=== PATIENT | female | born 1985 | race African-American/Black ===

== ENCOUNTER 2019-09-07 15:13 | Emergency (ER) | payer OTHER ==
[2019-09-07] MEDS ORDERED: DIPHENHYDRAMINE HCL 50 MG/ML VIAL IV ONE (15:43)
[2019-09-07] MEDS ORDERED: KETOROLAC TROMETHAMINE INJ/PF 30 MG/1 ML SDV IV ONE (15:43)
--- NOTE | 2019-09-07 15:44 | ER Document Report ---
ED Medical Screen (RME) - General Chief Complaint: High Blood Pressure Stated Complaint: HEADACHE Time Seen by Provider: 09/07/19 15:39 Mode of Arrival: Ambulatory Information source: Patient Notes: Patient is a 33-year-old female presenting to the emergency department with concern for elevated blood pressure and headache. Patient reports he started having a headache last night. She states it is located in the back of her head. She states that she took Tylenol with no relief. She reports that she took her blood pressure and noted it to be elevated. She went to the urgent care today where they gave her a work note told her to come to the ER for further evaluation. She denies any blurred vision. She states the headache came on gradually. She has no focal neurological deficits. I have greeted and performed a rapid initial assessment of this patient. A comprehensive ED assessment and evaluation of the patient, analysis of test results and completion of the medical decision making process will be conducted by additional ED providers. I have specifically instructed the patient or family members with the patient to immediately return to any nursing staff should anything change in the patient's condition or with their chief complaint. - Related Data Allergies/Adverse Reactions: No Known Allergies Allergy (Verified 09/07/19 15:37) Home Medications: multivitamin Past Medical History - Social History Chew tobacco use (# tins/day): No Frequency of alcohol use: Social Drug Abuse: None Physical Exam - Vital signs Vitals: Temp Pulse Resp BP Pulse Ox 97.8 F 69 18 151/82 H 100 09/07/19 15:19 09/07/19 15:19 09/07/19 15:19 09/07/19 15:19 09/07/19 15:19 Course - Vital Signs Vital signs: Temp Pulse Resp BP Pulse Ox 97.8 F 69 18 151/82 H 100 09/07/19 15:37 09/07/19 15:19 09/07/19 15:19 09/07/19 15:19 09/07/19 15:19
--- NOTE | 2019-09-07 17:07 | ER Document Report ---
ED Blood Pressure Problem - General Chief Complaint: High Blood Pressure Stated Complaint: HEADACHE Time Seen by Provider: 09/07/19 15:39 Primary Care Provider: MARILYN GARCÍA MD [ACTIVE STAFF] - Follow up tomorrow (Call for an outpatient follow-up appointment.) Mode of Arrival: Ambulatory Information source: Patient Notes: 33-year-old female past medical history significant for menstrual migraines presents to the emergency room complaining of a posterior headache that started last night. States it was a squeezing type of pain. Was able to sleep without difficulty last night states she woke up with a headache again this morning. Took 500 mg of Tylenol went to the urgent care states her blood pressure was 162/109 and was referred to the emergency room for further evaluation and treatment. Patient denies any nausea, vomiting, no photophobia, denies worst headache of her life, denies sudden thunderclap, no chest pain, no shortness of breath, no difficulty breathing. No previous history of hypertension. TRAVEL OUTSIDE OF THE [place] IN LAST 30 DAYS: No - Related Data Allergies/Adverse Reactions: No Known Allergies Allergy (Verified 09/07/19 15:37) Home Medications: multivitamin Past Medical History - General Information source: Patient - Social History Smoking Status: Never Smoker Chew tobacco use (# tins/day): No Frequency of alcohol use: Social Drug Abuse: None Lives with: Family Family History: DM, Hypertension Patient has homicidal ideation: No Review of Systems - Review of Systems Constitutional: No symptoms reported EENT: No symptoms reported Cardiovascular: No symptoms reported Respiratory: No symptoms reported Musculoskeletal: No symptoms reported Skin: No symptoms reported Neurological/Psychological: Headaches -: Yes All other systems reviewed and negative Physical Exam - Vital signs Vitals: Temp Pulse Resp BP Pulse Ox 97.8 F 69 18 151/82 H 100 09/07/19 15:19 09/07/19 15:19 09/07/19 15:19 09/07/19 15:19 09/07/19 15:19 - General General appearance: Appears well, Alert In distress: Mild - HEENT Head: Normocephalic, Atraumatic. No: Tenderness Eyes: Normal Pupils: PERRL - Respiratory Respiratory status: No respiratory distress Chest status: Nontender Breath sounds: Normal Chest palpation: Normal - Cardiovascular Rhythm: Regular Heart sounds: Normal auscultation Murmur: No - Extremities General upper extremity: Normal inspection, Nontender, Normal color, Normal ROM, Normal temperature General lower extremity: Normal inspection, Nontender, Normal color, Normal ROM, Normal temperature, Normal weight bearing. No: Mohsen's sign - Neurological Neuro grossly intact: Yes Cognition: Normal Orientation: AAOx4 Hai Coma Scale Eye Opening: Spontaneous Hai Coma Scale Verbal: Oriented Hai Coma Scale Motor: Obeys Commands Thorndike Coma Scale Total: 15 Speech: Normal Motor strength normal: LUE, RUE, LLE, RLE Sensory: Normal - Skin Skin Temperature: Warm Skin Moisture: Dry Skin Color: Normal Course - Re-evaluation Re-evalutation: 09/07/19 17:16 Patient is currently resting comfortably states her headache is almost completely resolved. Vital signs are stable. EKG ordered if stable will discharge home. 09/07/19 17:37 Patient continues to rest comfortably, her blood pressure is stable. EKG without any acute changes. Patient was counseled to take Tylenol as needed for headaches. Outpatient follow-up with a primary care physician for her elevated blood pressure. She was given strict return to the emergency room guidelines. Return for any new or worsening symptoms. All questions were answered. Patient verbalized understanding and agrees with plan of care. - Vital Signs Vital signs: Temp Pulse Resp BP Pulse Ox 97.8 F 69 18 162/78 H 100 09/07/19 15:37 09/07/19 15:19 09/07/19 15:19 09/07/19 16:51 09/07/19 15:19 - EKG Interpretation by Nm EKG shows normal: Sinus rhythm Rate: Normal Additional EKG results interpreted by me: 09/07/19 17:33 EKG was interpreted by ED physician Dr. Pichardo, No acute STEMI. Discharge - Discharge Clinical Impression: Blood pressure elevated without history of HTN Headache Qualifiers: Headache type: unspecified Headache chronicity pattern: acute headache Intractability: not intractable Qualified Code(s): R51 - Headache Condition: Stable Disposition: HOME, SELF-CARE Instructions: Headache ([facility]), High Blood Pressure ([facility]) Additional Instructions: Follow-up with your primary care physician for your elevated blood pressure. Return for any new or worsening symptoms. Continue with Tylenol as needed for headaches. Forms: Elevated Blood Pressure Referrals: MARILYN GARCÍA MD [ACTIVE STAFF] - Follow up tomorrow (Call for an outpatient follow-up appointment.)
[2019-09-07 17:53] VITALS: BP 109/59
--- NOTE | 2019-09-07 22:32 | EKG REPORT ---
SEVERITY:- NORMAL ECG - SINUS RHYTHM : Confirmed by: El Youngblood 07-Sep-2019 22:31:24
== END 2019-09-07 17:52 | disposition home or self-care (01) ==
LOC: ER 15:13
DX: R51 Headache (principal); R03.0 Elevated blood-pressure reading, without diagnosis of hypertension
CPT/HCPCS: 93005; 99283; 96374; 96375; 93010; J1200; J1885